=== PATIENT | male | born 1985 | race Caucasian/White ===

== ENCOUNTER 2018-09-03 07:24 | Emergency (ER) | payer OTHER, BC ==
[2018-09-03] MEDS: LORAZEPAM 0.5 MG TAB PO (07:49)
== END 2018-09-03 10:06 | disposition home or self-care (01) ==
LOC: E/R 07:24
DX: R00.2 Palpitations (principal); F41.9 Anxiety disorder, unspecified; F10.10 Alcohol abuse, uncomplicated
CPT/HCPCS: 93005; 99283-25